=== PATIENT | male | born 1985 | race Caucasian/White ===

== ENCOUNTER 2018-06-12 14:35 | Inpatient (IN) | payer MEDICARE, MEDICAID ==
[~2018-06-12] VITALS: Ht 188 cm; Wt 88.5 kg
[2018-06-12] MEDS ORDERED: LORazepam 2 MG TABLET PO PRN (16:15)
[2018-06-12] MEDS ORDERED: ZOLPIDEM TARTRATE 10 MG TABLET PO PRN (16:15)
[2018-06-12] MEDS ORDERED: QUEtiapine FUMARATE 100 MG TABLET PO PRN (16:15)
[2018-06-12] MEDS ORDERED: TRAZ150 PO (16:33)
[2018-06-12] MEDS ORDERED: PROP10TA73 PO ×2 (16:33)
[2018-06-12] MEDS ORDERED: RISP2 PO (16:33)
[2018-06-12] MEDS ORDERED: TRIH5TAB2 PO (16:33)
[2018-06-12] MEDS ORDERED: DIVA500T52 PO ×2 (17:04)
[2018-06-12] MEDS ORDERED: ARIP5TAB8 PO (17:04)
[2018-06-12] MEDS ORDERED: DIPH25 PO (17:04)
[2018-06-12 17:45] VITALS: BP 117/69
[2018-06-12] MEDS ORDERED: PNEUMOCOCCAL VACCINE POLYVALENT 0.5 ML VIAL [PPSV23] IM ONE (18:15)
[2018-06-12] MEDS ORDERED: ONDANSETRON HCL 4 MG TABLET PO PRN (18:45)
[2018-06-12] MEDS ORDERED: BACITRACIN 28.4 GM OINTMENT TP PRN (18:45)
[2018-06-12] MEDS ORDERED: CloNIDine HCL 0.1 MG TABLET PO PRN (18:45)
[2018-06-12] MEDS ORDERED: IBUPROFEN 600 MG TABLET PO PRN (18:45)
[2018-06-12] MEDS ORDERED: LOPERAMIDE HCL 2 MG CAPSULE PO PRN (18:45)
[2018-06-12] MEDS ORDERED: ALBUTEROL SULFATE HFA 90 MCG/PUFF 8 GM INHALER IH PRN (18:45)
[2018-06-12] MEDS ORDERED: BENZOCAINE/MENTHOL LOZENGE MM PRN (18:45)
[2018-06-12] MEDS ORDERED: MAGNESIUM HYDROXIDE SUSPENSION 30 ML UDCUP PO PRN (18:45)
[2018-06-12] MEDS ORDERED: MAG HYDROX/AL HYDROX/SIMETH ES 30 ML SUSPENSION UDCUP PO PRN (18:45)
[2018-06-12] MEDS ORDERED: ACETAMINOPHEN 325 MG TABLET PO PRN (18:45)
[2018-06-12] MEDS ORDERED: PETROLATUM,WHITE 71 GM JELLY TP PRN (18:45)
[2018-06-12] MEDS: TraZODone HCL 150 MG TABLET PO SCH (20:49)
[2018-06-12] MEDS: RisperiDONE 2 MG TABLET PO SCH (20:49)
[2018-06-12] MEDS: TRIHEXYPHENIDYL HCL 5 MG TABLET PO SCH (20:50)
[2018-06-12] MEDS ORDERED: DIVALPROEX SODIUM 500 MG ER TABLET PO SCH (21:00)
[2018-06-13 04:30] VITALS: BP 120/82
[2018-06-13 08:12] VITALS: BP 106/63
[2018-06-13 08:50] LABS: BASOPHILS % (AUTO) 0.5 % (0.0-2.0); EOSINOPHILS % (AUTO) 1.9 % (1.0-6.0); HEMATOCRIT 43.9 % (41-53); HEMOGLOBIN 15.2 g/dL (13.5-17.5); LYMPHOCYTES # (AUTO) 2.8 K/uL (1.0-4.8); LYMPHOCYTES % (AUTO) 49.7 % (22.0-44.0); MEAN CORPUSCULAR HEMOGLOBIN 32.8 pg (26.0-34.0); MEAN CORPUSCULAR HGB CONC 34.7 G/dL (31.0-37.0); MEAN CORPUSCULAR VOLUME 94 fL (80-100); MONOCYTES # (AUTO) 0.6 K/uL (0.1-1.0); MONOCYTES % (AUTO) 10.1 % (2.0-9.0); NEUTROPHILS # (AUTO) 2.2 K/uL (1.8-7.7); NEUTROPHILS % (AUTO) 37.8 % (40.0-70.0); PLATELET COUNT (AUTO) 189 K/uL (150-450); RED BLOOD CELL COUNT(AUTO) 4.66 MIL/uL (4.50-5.90); RED CELL DISTRIBUTION WIDTH 14.2 % (11.5-14.5)
[2018-06-13] MEDS: OMEPRAZOLE 20 MG CAPSULE PO SCH (09:04)
[2018-06-13] MEDS: TRIHEXYPHENIDYL HCL 5 MG TABLET PO SCH ×2 (09:04→19:30)
[2018-06-13] MEDS: DOCUSATE SODIUM 100 MG CAPSULE PO SCH (09:04)
[2018-06-13] MEDS: RisperiDONE 2 MG TABLET PO SCH ×2 (09:04→16:03)
[2018-06-13 09:18] LABS: HEMOGLOBIN A1C 5.2 % (4.5-6.2)
[2018-06-13 09:40] LABS: ALANINE AMINOTRANSFERASE 34 U/L (12-78); ALBUMIN 3.5 g/dL (3.4-5.0); ALKALINE PHOSPHATASE 41 U/L (46-116); ANION GAP 3 mmol/L (8-16); ASPARTATE AMINOTRANSFERASE 26 U/L (15-37); BILIRUBIN,TOTAL 0.3 mg/dL (0.1-1.0); CALCIUM, TOTAL 8.8 mg/dL (8.8-10.5); CARBON DIOXIDE 35 mmol/L (22-29); CHLORIDE 102 mmol/L (98-107); CHOL/HDL RATIO 2.2 (4.2-7.3); CHOLESTEROL 130 mg/dL (131-200); CREATININE 0.83 mg/dL (0.60-1.30); FREE T4 (FREE THYROXINE) 1.17 ng/dL (0.76-1.46); GLOMERULAR FILTR. RATE CALC > 60 mL/min (>60); GLUCOSE,RANDOM 76 mg/dL (70-110); HDL CHOLESTEROL 60 mg/dL (40-60); LDL CHOL (CALC.) 60 mg/dL (0-130); POTASSIUM 4.8 mmol/L (3.5-5.1); SODIUM SERUM 140 mmol/L (136-145); THYROID STIMULATING HORMONE 1.62 uIU/mL (0.36-3.74); TOTAL PROTEIN, SERUM 6.7 g/dL (6.4-8.2); TRIGLYCERIDES 51 mg/dL (15-150); UREA NITROGEN, BLOOD 11 mg/dL (7-18)
[2018-06-13] MEDS ORDERED: HydrOXYzine PAMOATE 50 MG CAPSULE PO PRN (11:45)
[2018-06-13] MEDS ORDERED: GuaiFENesin/D-METHORPHAN [SUGAR-FREE] 200-20MG/10 ML SYRUP UDCUP PO PRN (11:45)
[2018-06-13 16:02] VITALS: BP 115/67
[2018-06-13] MEDS: THIAMINE HCL 100 MG TABLET PO SCH (16:03)
[2018-06-13] MEDS: TraZODone HCL 150 MG TABLET PO SCH (19:30)
[2018-06-13] MEDS: DIVALPROEX SODIUM 500 MG ER TABLET PO SCH (19:32)
[2018-06-13] MEDS ORDERED: PETROLATUM,WHITE 71 GM JELLY TP PRN (20:15)
[2018-06-13] MEDS ORDERED: IBUPROFEN 600 MG TABLET PO PRN (20:15)
[2018-06-13] MEDS ORDERED: BENZOCAINE/MENTHOL LOZENGE MM PRN (20:15)
[2018-06-13] MEDS ORDERED: BACITRACIN 28.4 GM OINTMENT TP PRN (20:15)
[2018-06-13] MEDS ORDERED: CloNIDine HCL 0.1 MG TABLET PO PRN (20:15)
[2018-06-14 06:58] VITALS: BP 98/51
[2018-06-14] MEDS: RisperiDONE 2 MG TABLET PO SCH (08:32)
[2018-06-14] MEDS: OMEPRAZOLE 20 MG CAPSULE PO SCH (08:32)
[2018-06-14] MEDS: THIAMINE HCL 100 MG TABLET PO SCH ×2 (08:32→16:24)
[2018-06-14] MEDS: TRIHEXYPHENIDYL HCL 5 MG TABLET PO SCH ×2 (08:32→20:17)
[2018-06-14] MEDS: FOLIC ACID 1 MG TABLET PO SCH (08:32)
[2018-06-14] MEDS: MULTIVITAMINS WITH MINERALS, THERAPEUTIC TABLET PO SCH (08:32)
[2018-06-14] MEDS: NALTREXONE HCL 50 MG TABLET PO SCH (08:32)
[2018-06-14] MEDS: DOCUSATE SODIUM 100 MG CAPSULE PO SCH (08:33)
[2018-06-14 08:55] VITALS: BP 107/61
[2018-06-14 09:05] LABS: APPEARANCE,URINE TURBID (CLEAR); BILIRUBIN,URINE NEGATIVE (NEGATIVE); GLUCOSE, URINE (UA) NEGATIVE (NEGATIVE); KETONES,URINE TRACE mg/dL (NEGATIVE); LEUKOCYTE ESTERASE ,URINE TRACE (NEGATIVE); NITRATE,URINE NEGATIVE (NEGATIVE); OCCULT BLOOD,URINE NEGATIVE (NEGATIVE); PH,URINE 7.5 (5.0-8.0); PROTEIN,URINE NEGATIVE (NEGATIVE); UROBILINOGEN,URINE 0.2 mg/dL (<=1.0)
[2018-06-14 09:16] LABS: AMPHET/METH SCREEN,URINE NEGATIVE (NEGATIVE); BARBITURATE SCREEN, URINE NEGATIVE (NEGATIVE); BENZODIAZEPINES SCREEN,URINE NEGATIVE (NEGATIVE); CANNABINOID SCREEN,URINE POSITIVE (NEGATIVE); COCAINE SCREEN,URINE NEGATIVE (NEGATIVE); METHADONE SCREEN, URINE NEGATIVE (NEGATIVE); OPIATE SCREEN,URINE NEGATIVE (NEGATIVE); PHENCYCLIDINE SCREEN,URINE NEGATIVE (NEGATIVE)
[2018-06-14 09:46] LABS: AMORPHOUS SEDIMENT,UR Many /LPF (None Seen); BACTERIA,URINE None Seen /HPF (None Seen); RBC,URINE None Seen /HPF (0-2); WBC,URINE 0-2 /HPF (0-5)
[2018-06-14] MEDS: RisperiDONE 3 MG TABLET PO SCH (16:24)
[2018-06-14 16:33] VITALS: BP 105/62
[2018-06-14] MEDS: TraZODone HCL 150 MG TABLET PO SCH (20:17)
[2018-06-14] MEDS: DIVALPROEX SODIUM 500 MG ER TABLET PO SCH (20:17)
[2018-06-15 00:38] VITALS: BP 110/68
[2018-06-15 08:09] VITALS: BP 115/63
[2018-06-15] MEDS: OMEPRAZOLE 20 MG CAPSULE PO SCH (08:25)
[2018-06-15] MEDS: RisperiDONE 3 MG TABLET PO SCH ×2 (08:25→16:03)
[2018-06-15] MEDS: THIAMINE HCL 100 MG TABLET PO SCH ×2 (08:25→16:03)
[2018-06-15] MEDS: TRIHEXYPHENIDYL HCL 5 MG TABLET PO SCH ×2 (08:25→21:15)
[2018-06-15] MEDS: MULTIVITAMINS WITH MINERALS, THERAPEUTIC TABLET PO SCH (08:25)
[2018-06-15] MEDS: FOLIC ACID 1 MG TABLET PO SCH (08:25)
[2018-06-15] MEDS: NALTREXONE HCL 50 MG TABLET PO SCH (08:25)
[2018-06-15] MEDS: DOCUSATE SODIUM 100 MG CAPSULE PO SCH (08:25)
[2018-06-15] MEDS ORDERED: NALT50TA PO (15:25)
[2018-06-15] MEDS ORDERED: RISP3 PO (15:25)
[2018-06-15] MEDS ORDERED: DIVA500T52 PO (15:25)
[2018-06-15] MEDS ORDERED: TRAZ150 PO (15:25)
[2018-06-15 16:00] VITALS: BP 120/75
[2018-06-15] MEDS: DIVALPROEX SODIUM 500 MG ER TABLET PO SCH (20:58)
[2018-06-15] MEDS: TraZODone HCL 150 MG TABLET PO SCH (20:58)
[2018-06-16] VITALS: BP 101/58
[2018-06-16 08:02] VITALS: BP 110/60
[2018-06-16] MEDS: RisperiDONE 3 MG TABLET PO SCH ×2 (08:17→16:32)
[2018-06-16] MEDS: DOCUSATE SODIUM 100 MG CAPSULE PO SCH (08:17)
[2018-06-16] MEDS: OMEPRAZOLE 20 MG CAPSULE PO SCH (08:17)
[2018-06-16] MEDS: MULTIVITAMINS WITH MINERALS, THERAPEUTIC TABLET PO SCH (08:17)
[2018-06-16] MEDS: FOLIC ACID 1 MG TABLET PO SCH (08:17)
[2018-06-16] MEDS: THIAMINE HCL 100 MG TABLET PO SCH ×2 (08:17→16:32)
[2018-06-16] MEDS: TRIHEXYPHENIDYL HCL 5 MG TABLET PO SCH ×2 (08:21→20:03)
[2018-06-16] MEDS: NALTREXONE HCL 50 MG TABLET PO SCH (08:22)
[2018-06-16 16:08] VITALS: BP 104/60
[2018-06-16] MEDS: DIVALPROEX SODIUM 500 MG ER TABLET PO SCH (20:03)
[2018-06-16] MEDS: TraZODone HCL 150 MG TABLET PO SCH (20:03)
[2018-06-17 00:10] VITALS: BP 110/68
[2018-06-17 08:10] VITALS: BP 104/60
[2018-06-17] MEDS: RisperiDONE 3 MG TABLET PO SCH ×2 (08:14→16:08)
[2018-06-17] MEDS: FOLIC ACID 1 MG TABLET PO SCH (08:14)
[2018-06-17] MEDS: OMEPRAZOLE 20 MG CAPSULE PO SCH (08:14)
[2018-06-17] MEDS: MULTIVITAMINS WITH MINERALS, THERAPEUTIC TABLET PO SCH (08:14)
[2018-06-17] MEDS: THIAMINE HCL 100 MG TABLET PO SCH ×2 (08:14→16:09)
[2018-06-17] MEDS: TRIHEXYPHENIDYL HCL 5 MG TABLET PO SCH ×2 (08:14→20:44)
[2018-06-17] MEDS: DOCUSATE SODIUM 100 MG CAPSULE PO SCH (08:14)
[2018-06-17] MEDS: NALTREXONE HCL 50 MG TABLET PO SCH (08:14)
[2018-06-17 16:01] VITALS: BP 114/67
[2018-06-17] MEDS: TraZODone HCL 150 MG TABLET PO SCH (20:49)
[2018-06-17] MEDS: DIVALPROEX SODIUM 500 MG ER TABLET PO SCH (20:49)
[2018-06-18 02:22] VITALS: BP 121/62
[2018-06-18] MEDS: THIAMINE HCL 100 MG TABLET PO SCH ×2 (08:02→16:20)
[2018-06-18] MEDS: FOLIC ACID 1 MG TABLET PO SCH (08:02)
[2018-06-18] MEDS: RisperiDONE 3 MG TABLET PO SCH ×2 (08:02→16:20)
[2018-06-18] MEDS: DOCUSATE SODIUM 100 MG CAPSULE PO SCH (08:02)
[2018-06-18] MEDS: NALTREXONE HCL 50 MG TABLET PO SCH (08:02)
[2018-06-18] MEDS: TRIHEXYPHENIDYL HCL 5 MG TABLET PO SCH (08:02)
[2018-06-18] MEDS: MULTIVITAMINS WITH MINERALS, THERAPEUTIC TABLET PO SCH (08:02)
[2018-06-18] MEDS: OMEPRAZOLE 20 MG CAPSULE PO SCH (08:02)
[2018-06-18 08:17] VITALS: BP 117/70
[2018-06-18 08:44] LABS: BASOPHILS % (AUTO) 0.8 % (0.0-2.0); EOSINOPHILS % (AUTO) 1.5 % (1.0-6.0); HEMOGLOBIN 16.2 g/dL (13.5-17.5); LYMPHOCYTES # (AUTO) 2.7 K/uL (1.0-4.8); LYMPHOCYTES % (AUTO) 52.1 % (22.0-44.0); MEAN CORPUSCULAR HEMOGLOBIN 32.4 pg (26.0-34.0); MEAN CORPUSCULAR HGB CONC 34.6 G/dL (31.0-37.0); MEAN CORPUSCULAR VOLUME 94 fL (80-100); MONOCYTES # (AUTO) 0.4 K/uL (0.1-1.0); MONOCYTES % (AUTO) 7.5 % (2.0-9.0); NEUTROPHILS % (AUTO) 38.1 % (40.0-70.0); PLATELET COUNT (AUTO) 230 K/uL (150-450); RED BLOOD CELL COUNT(AUTO) 5.01 MIL/uL (4.50-5.90); RED CELL DISTRIBUTION WIDTH 14.1 % (11.5-14.5)
[2018-06-18 09:14] LABS: ALBUMIN 3.9 g/dL (3.4-5.0); BILIRUBIN,DIRECT 0.1 mg/dL (0.00-0.20); BILIRUBIN,TOTAL 0.3 mg/dL (0.1-1.0); TOTAL PROTEIN, SERUM 7.9 g/dL (6.4-8.2)
[2018-06-18 16:04] VITALS: BP 115/60
[2018-06-18] MEDS ORDERED: MULT-1239 PO (16:17)
[2018-06-18] MEDS ORDERED: NALT50TA6 PO (16:25)
[2018-06-18] MEDS ORDERED: RISP3 PO (16:25)
== END 2018-06-18 17:45 | disposition home or self-care (01) | DRG 885 ==
LOC: B2X 16:47
PROVIDERS: ADMIT Psychiatry & Neurology Psychiatry; ATTEND Psychiatry & Neurology Psychiatry
DX: F25.0 Schizoaffective disorder, bipolar type (principal); F17.200 Nicotine dependence, unspecified, uncomplicated; F12.20 Cannabis dependence, uncomplicated; F41.9 Anxiety disorder, unspecified; G47.00 Insomnia, unspecified; J30.9 Allergic rhinitis, unspecified; K21.9 Gastro-esophageal reflux disease without esophagitis; K59.00 Constipation, unspecified; Z91.19 Patient's noncompliance with other medical treatment and regimen; Z79.899 Other long term (current) drug therapy; Z71.51 Drug abuse counseling and surveillance of drug abuser; Z71.6 Tobacco abuse counseling
CPT/HCPCS: 80307; 83036; 84439; 84443; 90686; 90732